=== PATIENT | male | born 1995 | race Caucasian/White ===

== ENCOUNTER 2024-07-06 01:05 | Emergency (ER) | payer SELFPAY ==
[2024-07-06] MEDS ORDERED: HYDROCODONE/APAP 10/325 TAB ONE (02:02)
[2024-07-06] MEDS ORDERED: CEPHALEXIN 250 MG CAP ONE (02:02)
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
[2024-07-06 03:37] VITALS: BP 119/78; O2SAT 98
--- NOTE | 2024-07-06 04:50 | RAD REPORT ---
CLINICAL HISTORY: FRACTURE COMPARISON: None. 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 FINDINGS: There is a depressed fracture of the anterior wall of the left maxillary sinus. There is an air-fluid level in the left maxillary sinus. There is minimal left orbital floor fracture deformity anteriorly. There is large amount of air in the periorbital and retrobulbar structures. Mastoid air c ells are clear. Temporomandibular joints are intact. There are no significant soft tissue abnormalities. IMPRESSION: Left facial fractures as described. Electronically signed by: Christopher Kruse MD 07/06/2024 04:31 AM SPRAYER OPERATOR RP Due to temporary technical issues with the PACS/[employer] reporting system, reports are being alisha d by the in-house radiologist without review as a courtesy to ensure prompt reporting the interpreting radiologist is fully responsible for the content of the report. Transcribed Date/Time: 07/06/2024 4:50 AM
--- NOTE | 2024-07-06 04:51 | RAD REPORT ---
CLINICAL HISTORY: facial fracture COMPARISON: None. TECHNIQUE: CT HEAD WITHOUT IV CONTRAST on 07/06/2024 1:34 AM APPLICATION SYSTEMS ADMINISTRATOR This exam was performed according to our departmental dose-optimization program, which includes autom ated exposure control, adjustment of the mA and/or kV according to patient size and/or use of iterative reconstruction technique. FINDINGS: There is no acute hemorrhage, mass effect or midline shift. Irvin-white differentiation is preserved. There is no hydrocephalus. There is no significant volume loss for age. There is a depressed fracture of the anterior wall of the left maxillary sinus. There is left periorb ital soft tissue swelling with subcutaneous air in the periorbital and retrobulbar structures. There is minimal left orbital floor fracture. There is an air-fluid level in the left maxillary sinus . Mastoid air cells are clear. IMPRESSION: Left facial soft tissue and bony injuries. No acute intracranial findings. Electronically signed by: Christopher Kruse MD 07/06/2024 04:31 AM APPLICATION SYSTEMS ADMINISTRATOR RP Due to temporary technical issues with the PACS/[employer] reporting system, reports are being alisha d by the in-house radiologist without review as a courtesy to ensure prompt reporting the interpreting radiologist is fully responsible for the content of the report. Transcribed Date/Time: 07/06/2024 4:50 AM
== END 2024-07-06 03:33 | disposition home or self-care (01) ==
LOC: ER 01:05
DX: S02.32XA Fracture of orbital floor, left side, initial encounter for closed fracture (principal); S02.40DA Maxillary fracture, left side, initial encounter for closed fracture; Y04.8XXA Assault by other bodily force, initial encounter
CPT/HCPCS: 70450; 70486; 76377; 99283